=== PATIENT | female | born 1985 | race Caucasian/White ===

== ENCOUNTER 2019-02-12 10:18 | Outpatient (CLI) | payer OTHER, SELFPAY ==
[2019-02-12 10:53] LABS: Abs Immature Grans 0.01 k/cumm (0.0-0.09); Absolute Basophil Count 0.04 k/cumm (0.0-0.2); Absolute Eosinophil Count 0.06 k/cumm (0.0-0.7); Absolute Lymphocyte Count 1.78 k/cumm (1.2-3.4); Absolute Monocyte Count 0.36 k/cumm (0.11-0.7); Absolute Neutrophil Count 3.11 k/cumm (1.2-6.7); Basophils % 0.7; Eosinophils % 1.1; HGB 12.4 g/dL (12.0-15.5); Immature Grans % 0.2; Lymphocytes % 33.2; Mean Corp. HGB Concentration 32.6 g/dL (32.0-36.0); Mean Corpuscular Hemoglobin 28.6 pg (27.0-33.0); Mean Corpuscular Volume 87.6 fL (80-95); Mean Platelet Volume 9.4 fL (8.0-11.0); Monocytes % 6.7; Neutrophils % 58.1; Platelet Count 317 x1000/uL (130-400); RBC 4.34 m/cumm (4.00-5.20); RBC Distribution Width 13.1 % (11.7-14.6); White Blood Cell Count 5.36 k/cumm (4.4-10.8)
[2019-02-12 11:59] LABS: C-Reactive Protein 1.21 mg/dL (0.0-0.3)
[2019-02-12 12:17] LABS: ESR 21 mm/hr (0-20)
[2019-02-13 10:00] LABS: Cyclic Citrullinated Peptide <2.5 U/mL (<5.0)
[2019-02-13 10:33] LABS: Syphilis Serology (RPR) Negative (Negative)
[2019-02-13 10:34] LABS: Lyme Ab w Rflx to Lyme Confirm Negative (Negative)
[2019-02-13 11:44] LABS: HIV-1/2 Ag & Ab Screen Negative (Negative)
[2019-02-13 15:26] LABS: ANA Interpretation Negative (Negative)
== END 2019-02-12 10:38 ==
PROVIDERS: PCP Nurse Practitioner Adult Health; Visit Provider Nurse Practitioner Adult Health
DX: M25.50 Pain in unspecified joint (principal)
CPT/HCPCS: 36415; 85652; 86200; 87389; 85025; 86038; 86140; 86592; 86618

== ENCOUNTER 2019-05-22 14:53 | Outpatient (REF) | payer OTHER, SELFPAY ==
[2019-05-23 14:55] LABS: Chlamydia Result Negative (Negative); GC Result Negative (Negative)
== END 2019-05-22 15:13 ==
LOC: LBN 14:53
PROVIDERS: PCP Nurse Practitioner Adult Health; Visit Provider Family Medicine
DX: Z11.3 Encounter for screening for infections with a predominantly sexual mode of transmission (principal)
CPT/HCPCS: 87491; 87591

== ENCOUNTER 2019-12-16 08:43 | Outpatient (CLI) | payer OTHER, SELFPAY ==
--- NOTE | 2019-12-16 08:15 | DI.RAD_ITS ---
EXAM: XR KNEE RT 4V AP,LAT,DRAKE,PAT CLINICAL HISTORY: R knee pain. TECHNIQUE: 2D digital imaging was performed. COMPARISON: No exams were available for comparison FINDINGS: BONES: No acute fracture is present. No bony destructive lesion is seen. There is minimal periartic ular spurring JOINTS: The knee is normally aligned. No joint effusion is seen. SOFT TISSUE: Normal. IMPRESSION: Mild degenerative changes. DATA REPOSITORY: RADIATION DOSE DELIVERED:
== END 2019-12-16 09:03 ==
PROVIDERS: PCP Nurse Practitioner Adult Health; Referring Provider Nurse Practitioner Adult Health; Visit Provider Physician Assistant
DX: M17.11 Unilateral primary osteoarthritis, right knee (principal); M25.561 Pain in right knee
CPT/HCPCS: 73564

== ENCOUNTER 2021-11-16 18:57 | Outpatient (REF) | payer OTHER, SELFPAY ==
[2021-11-16 21:05] LABS: AST 26 U/L (15-37); Albumin 4.1 g/dL (3.4-5.0); Alkaline Phosphatase 58 U/L (46-116); Anion Gap 12.6 mmol/L (3-11); BUN 11 mg/dL (7-18); Bilirubin, Total 0.3 mg/dL (0.2-1.0); CO2 26.4 mmol/L (21.0-32.0); CREATININE 0.8 mg/dL (0.55-1.02); Calcium 9.2 mg/dL (8.5-10.1); Calculated LDL 137 mg/dL (<100); Chloride 102 mmol/L (98-107); Cholesterol 238 mg/dL (<200); Estimated GFR 97.87 (mL/min/1.73m2); Glucose 93 mg/dL (74-106); HDL Cholesterol 63 mg/dL (40-60); Potassium 4.2 mmol/L (3.5-5.1); Sodium 141 mmol/L (136-145); TSH (W/Ref FT4) 1.76 uIU/mL (0.36-3.74); Total Protein 7.9 g/dL (6.4-8.2); Triglyceride 194 mg/dL (<150)
[2021-11-16 21:18] LABS: ALT 37 U/L (14-59)
[2021-11-18 12:20] LABS: HCV RNA Qualitative Undetected (Undetected)
== END 2021-11-16 18:58 | disposition home or self-care (01) ==
LOC: NCHCN 18:57
PROVIDERS: PCP Nurse Practitioner Adult Health; Visit Provider Family Medicine
DX: R63.5 Abnormal weight gain (principal); Z87.19 Personal history of other diseases of the digestive system
CPT/HCPCS: 80053; 80061; 87522; 84443

== ENCOUNTER 2022-02-15 16:23 | Outpatient (REF) | payer OTHER, SELFPAY ==
[2022-02-18 17:08] LABS: 2-OH-Ethyl-Flurazepam Negative ng/mL (Cutoff: 10); 7-NH-Clonazepam 1268 ng/mL (Cutoff: 10); 7-NH-Flunitrazepam Negative ng/mL (Cutoff: 10); Alpha OH-Alprazolam Negative ng/mL (Cutoff: 10); Alpha-OH Midazolam Negative ng/mL (Cutoff: 10); Alpha-OH-Triazolam Negative ng/mL (Cutoff: 10); Alprazolam Negative ng/mL (Cutoff: 10); Benzodiazepines Interpretation Positive.; Chlordiazepoxide Negative ng/mL (Cutoff: 10); Clobazam Negative ng/mL (Cutoff: 10); Clonazepam 65 ng/mL (Cutoff: 10); Diazepam Negative ng/mL (Cutoff: 10); Flurazepam Negative ng/mL (Cutoff: 10); Lorazepam Negative ng/mL (Cutoff: 10); Midazolam Negative ng/mL (Cutoff: 10); N-Desmethylclobazam Negative ng/mL (Cutoff: 10); Prazepam Negative ng/mL (Cutoff: 10); Temazepam Negative ng/mL (Cutoff: 10); Triazolam Negative ng/mL (Cutoff: 10); Zolpidem Carboxylic acid 193 ng/mL (Cutoff: 10)
== END 2022-02-15 16:24 | disposition home or self-care (01) ==
LOC: NCHCN 16:23
PROVIDERS: PCP Nurse Practitioner Adult Health; Visit Provider Family Medicine
DX: F41.1 Generalized anxiety disorder (principal)
CPT/HCPCS: 80346

== ENCOUNTER 2022-03-04 11:28 | Emergency (ER) | payer OTHER, SELFPAY ==
--- NOTE | 2022-03-04 11:15 | RT.EKG_ITS ---
APPROVED REPORT Exam: Resting ECG Reason for Exam: Chest pain Patient Location: E HR:114 bpm ECG Measurements Heart Rate 114 AXIS VA 149 P 1 QRSd 84 QRS 33 QT 335 T -17 QTc 461 Conclusion Sinus tachycardia...rate> 99 sinus tachycardia, normal axis, normal intervals, non ishcemic
[2022-03-04 11:33] VITALS: BP 127/83; PULSE 119; RESP 20; TEMP 37.4; O2SAT 97
[2022-03-04] MEDS: Dexamethasone 4 MG/ML VIAL IVP (12:12)
[2022-03-04] MEDS: Ketorolac 15 MG/ML VIAL IVP (12:12)
[2022-03-04] MEDS: Lactated Ringers 1,000 ML 1000 ML IV (12:13)
--- NOTE | 2022-03-04 13:17 | ED.GENADUL_ITS ---
Discharge Plan Disposition Patient Disposition: Home Condition: Stable Discharge Details Clinical Impression: Influenza A Primary Care Provider: Estelle Bennett ED Provider: Chantel Laird Home Meds and New Rx's Prescriptions: New codeine-guaifenesin 10-100 mg/5 mL liquid 5 ml PO Q6H Qty: 120 0RF Continued cyclobenzaprine 5 mg tablet 5 mg PO TID PRN (Reason: muscle spasm) Qty: 15 0RF celecoxib [Celebrex] 200 mg capsule 200 mg PO BID Qty: 90 0RF zolpidem 5 MG tablet 5 mg PO HS PRN PRN Non-Formulary Medication 1 EACH misc 1 tab PO DAILY Label Comments: control ondansetron 4 MG tablet,disintegrating 4 mg PO Q6H PRN PRN (Reason: Nausea / Vomiting) Qty: 30 0RF Discharge Instructions Instructions: H1N1 Influenza (ED) Additional Instructions: Continue supportive care Ibuprofen, Tylenol, albuterol inhaler, 2 puffs every 4-6 hours as needed for cough, wheeze, shortness of breath No return to work until you are fever free for 24 hours Return earlier should he have new or worsening complaints Stand Alone Forms: Work Release Referrals: Estelle Bennett [Primary Care Provider] - Discharge Data Discharge Date/Time-TO BE ENTERED AT DEPARTURE: 03/04/22 13:43 Medical Decision Making This 36-year-old female with flulike symptoms consistent with cough, pleuritic chest pain, fever, chills, myalgias test positive for influenza A, made aware Has requested Tamiflu which is prescribed Ibuprofen and Tylenol, 1 L fluid as patient is tachycardic, likely secondary to fever prior to arrival After fluids, ibuprofen, patient feeling symptomatically improved Supportive care reviewed Return precautions discussed and patient expressed understanding, lungs clear to auscultation, no hypoxia Denies chance of , no abdominal tenderness Recheck in 24 to 48 hours recommended early return precautions reviewed and patient states understanding Medical Records Medical records reviewed: Yes I reviewed the patient's medical records. Lab Data Lab results reviewed: Yes I reviewed the patient's lab results. HPI General Date/Time Provider Initiated Documentation: 03/04/22 11:52 . HPI Narrative: This 36-year-old female presents with cough, chest discomfort, fever, chills starting yesterday. Denies chance of . Denies any additional complaints at this time. Otherwise reportedly healthy Related Data Home Medications Medication Instructions Recorded Confirmed Non-Formulary Medication 1 tab PO DAILY 07/10/17 12/16/19 zolpidem 5 mg tablet 5 mg PO HS PRN PRN 07/10/17 03/04/22 ondansetron 4 mg disintegrating 4 mg PO Q6H PRN PRN Nausea / 18 12/16/19 tablet Vomiting ##30 celecoxib 200 mg capsule (Celebrex) 200 mg PO BID #90 caps 12/16/19 03/04/22 cyclobenzaprine 5 mg tablet 5 mg PO TID PRN muscle spasm #15 12/16/19 12/16/19 tabs codeine 10 mg-guaifenesin 100 mg/5 5 ml PO Q6H #120 mL 03/04/22 mL oral liquid Previous Rx's Medication Instructions Recorded ondansetron 4 mg disintegrating 4 mg PO Q6H PRN PRN Nausea / 07/11/17 tablet Vomiting ##30 celecoxib 200 mg capsule (Celebrex) 200 mg PO BID #90 caps 12/16/19 cyclobenzaprine 5 mg tablet 5 mg PO TID PRN muscle spasm #15 12/16/19 tabs codeine 10 mg-guaifenesin 100 mg/5 5 ml PO Q6H #120 mL 03/04/22 mL oral liquid Allergies Allergy/AdvReac Type Severity Reaction Status Date / Time sulfamethoxazole Allergy Severe Hives Unverified 03/04/22 11:38 [From Septra] trimethoprim [From Septra] Allergy Severe Hives Unverified 03/04/22 11:38 haloperidol [From Haldol] Allergy Intermediate Other (See Unverified 03/04/22 11:38 Comment) General Stated Complaint: [facility]Medical JOHANA: 3 Review of Systems All systems reviewed & are unremarkable except as noted in HPI and below PFSH All Active Problems (Updated 03/04/22 @ 13:22 by MARGIE Lim) Influenza A (Acute) Strain of right quadriceps (Acute) Encounter for screening for other viral diseases (Acute) Right rotator cuff tendonitis (Chronic) Social History Smoking/Tobacco Use Status: Former Tobacco Use Smoking risk assessment performed?: Yes Alcohol Intake: never Drug use: Never Substance use type: does not use Current gender identity: female Do you feel safe at home: Yes Do you feel safe in your relationship?: Yes Exam Const General: cooperative and comfortable Orientation: alert and oriented x3 Resp Effort & Inspection: normal respiratory effort Auscultation: clear to auscultation bilaterally Cardio Rate: tachycardic Rhythm: regular rhythm Heart Sounds: no murmurs GI Inspection: normal to inspection Skin General skin exam: no rashes or lesions noted Neuro General: patient alert and patient oriented x3 Course Vital Signs Vital signs: Vital Signs Temperature 37.4 C 03/04/22 11:33 Pulse 119 H 03/04/22 11:33 Respiratory Rate 20 03/04/22 11:33 Blood Pressure 127/83 03/04/22 11:33 Pulse Oximetry 97 03/04/22 11:33 Temperature 37.4 C 03/04/22 11:33 Temperature Source Oral 03/04/22 11:33 Pulse 119 H 03/04/22 11:33 Respiratory Rate 20 03/04/22 11:33 Respiratory Effort 03/04/22 12:11 Respiratory Depth Normal 03/04/22 12:11 Respiratory Pattern Normal 03/04/22 12:11 Blood Pressure 127/83 03/04/22 11:33 Blood Pressure Position Sitting 03/04/22 11:33 Pulse Oximetry 97 03/04/22 11:33 Oxygen Delivery Method Room Air 03/04/22 11:33 Oxygen Flow Rate 0 03/04/22 11:33 Lab/Test Results Lab/Test Results: 03/04/22 11:44 Tonsil - Not Specified Group A Streptococcus Culture - Pending POC Strep Test-LIONEL(Rapid) Start: 03/04/22 11:42 Freq: Status: Active Protocol: Document 03/04/22 11:51 OSMAR (Rec: 03/04/22 11:51 OSMAR [id number]) Strep test-LIONEL(Rapid)-POC POC-Strep test-LIONEL (Rapid) Negative POC-Strep test-LIONEL (Rapid) Negative
[2022-03-04 13:35] VITALS: BP 99/68; PULSE 103; RESP 18; TEMP 37.2; O2SAT 97
== END 2022-03-04 13:43 | disposition home or self-care (01) ==
PROVIDERS: Emergency Provider Physician Assistant; PCP Nurse Practitioner Adult Health
DX: J10.1 Influenza due to other identified influenza virus with other respiratory manifestations (principal); R00.0 Tachycardia, unspecified
CPT/HCPCS: 36415; 87880; 93005; 94640; 96361; 96374; 96375; 99284; 87081; 93010; J1100; J1885

== ENCOUNTER 2023-02-03 18:34 | Outpatient (REF) | payer OTHER, SELFPAY ==
--- NOTE | 2023-02-03 13:25 | PAPFT_PTH ---
PATIENT: Merlene Rodas LOC: [facility]#:[id number] AGE/SX: 37/F ROOM: RE02/03/[address]: Aliya Doll NP : 1985 BED: DIS: 02/03/2023 SPEC #: [id number] RECD: 02/03/23 18:37 STATUS: ELISSA REQ #: [id number] DAV: 02/03/23 13:[address]: Aliya Doll DEPT: PENDING SALE TO [facility] Cytology RECD BY: Chantel Calvillo ENTERED: 02/03/23 18:37 SP TYPE: PAPFT OTHR DR: Estelle Bennett Tissues: 1 - CX/ENDOCX FOR PAP SMEARS Procedures: PAP THIN PREP/[facility] Screening HPV DNA PROBE Comments: [id number]
--- OUTSIDE RECORDS SUMMARY | 2023-02-03 18:36 | XMS_ITS | Continuity of Care Document ---
Author Name Unknown Organization [facility] Address [address] [place] [address] Encounter [facility] FIN NBR [id number] Date(s): 01/12/22 - 01/12/[address] [id number] Discharge Disposition: Home or Self Care Attending Physician: Clint Koch. MARGIE
--- OUTSIDE RECORDS SUMMARY | 2023-02-03 18:36 | XMS_ITS | Continuity of Care Document ---
Author Name Unknown Organization [facility] Address [address] [place] [address] Encounter [facility] FIN NBR [id number] Date(s): 01/18/22 - 01/18/[address] [id number] Encounter Diagnosis Encounter for drug screening(Discharge Diagnosis) - 01/18/22 Pre-employment examination(Discharge Diagnosis) - 01/18/22 Discharge Disposition: Home or Self Care Attending Physician: Heidi Ruiz APRN Results Laboratory List Name Date .Urinalysis POCT 01/18/22 Most recent to oldest [Reference Range]: 1 Specific Barry, Ur POC 1.020 *NA* (01/18/22 1:27 PM) Specimen Color POC [Yellow] Yellow (01/18/22 1:27 PM) Glucose, Urine POC Negative mg/dL *NA* (01/18/22 1:27 PM) Bilirubin, Urine POC [Negative] Negative (01/18/22 1:27 PM) Ketones, Urine POC [Negative mg/dL] Nega tive mg/dL (01/18/22 1:27 PM) Blood, Urine POC [Negative] Negative (01/18/22 1:27 PM) pH, Urine POC 7.00 *NA* (01/18/22 1:27 PM) Protein, Urine POC [Negative mg/dL] Nega tive mg/dL (01/18/22 1:27 PM) Urobilinogen, Urine POC [0.2] 0.2 (01/18/22 1:27 PM) Nitrite, Urine POC [Negative] Negative (01/18/22 1:27 PM) Leuk Esterase, Urine POC [Negative] Nega tive (01/18/22 1:27 PM)
--- OUTSIDE RECORDS SUMMARY | 2023-02-03 18:36 | XMS_ITS | Continuity of Care Document ---
Author Name Unknown Organization [facility] Address [address] [place] [address] Encounter [facility] FIN NBR [id number] Date(s): 07/29/22 - 07/29/22 [facility] [address] [place] [address] [place] Discharge Disposition: Home or Self Care Attending Physician: KELLY BERGMAN MD Admitting Physician: KELLY BERGMAN MD Referring Physician: KELLY BERGMAN MD Assessment and Plan Diagnostic Tests Pending * Salivary Cortisol,MS LC 07/28/22 Immunizations Given and Recorded Vaccine Date Status Refusal Reason influenza virus vaccine, inactivated 01/19/22 Give n
== END 2023-02-03 18:35 | disposition home or self-care (01) ==
LOC: NCHCN 18:34
PROVIDERS: PCP Nurse Practitioner Adult Health; Visit Provider Nurse Practitioner Family
DX: Z12.4 Encounter for screening for malignant neoplasm of cervix (principal); Z11.51 Encounter for screening for human papillomavirus (HPV)
CPT/HCPCS: 88142; 87480; 87510; 87624; 87660

== ENCOUNTER 2023-04-13 14:48 | Outpatient (REF) | payer OTHER, SELFPAY ==
[2023-04-18 12:52] LABS: 2-OH-Ethyl-Flurazepam Negative ng/mL (Cutoff: 10); 7-NH-Clonazepam 627 ng/mL (Cutoff: 10); 7-NH-Flunitrazepam Negative ng/mL (Cutoff: 10); Alpha OH-Alprazolam Negative ng/mL (Cutoff: 10); Alpha-OH Midazolam Negative ng/mL (Cutoff: 10); Alpha-OH-Triazolam Negative ng/mL (Cutoff: 10); Alprazolam Negative ng/mL (Cutoff: 10); Benzodiazepines Interpretation Positive.; Chlordiazepoxide Negative ng/mL (Cutoff: 10); Clobazam Negative ng/mL (Cutoff: 10); Clonazepam 63 ng/mL (Cutoff: 10); Diazepam Negative ng/mL (Cutoff: 10); Flurazepam Negative ng/mL (Cutoff: 10); Lorazepam Negative ng/mL (Cutoff: 10); Midazolam Negative ng/mL (Cutoff: 10); N-Desmethylclobazam Negative ng/mL (Cutoff: 10); Prazepam Negative ng/mL (Cutoff: 10); Temazepam Negative ng/mL (Cutoff: 10); Triazolam Negative ng/mL (Cutoff: 10); Zolpidem Carboxylic acid 1536 ng/mL (Cutoff: 10)
== END 2023-04-13 14:49 | disposition home or self-care (01) ==
LOC: NCHCN 14:48
PROVIDERS: PCP Nurse Practitioner Adult Health; Visit Provider Family Medicine
DX: F41.1 Generalized anxiety disorder (principal)
CPT/HCPCS: 80346

== ENCOUNTER 2023-08-17 21:44 | Outpatient (REF) | payer SELFPAY ==
[2023-08-25 16:35] LABS: 2-OH-Ethyl-Flurazepam Negative ng/mL (Cutoff: 10); 7-NH-Clonazepam 319 ng/mL (Cutoff: 10); 7-NH-Flunitrazepam Negative ng/mL (Cutoff: 10); Alpha OH-Alprazolam Negative ng/mL (Cutoff: 10); Alpha-OH Midazolam Negative ng/mL (Cutoff: 10); Alpha-OH-Triazolam Negative ng/mL (Cutoff: 10); Alprazolam Negative ng/mL (Cutoff: 10); Benzodiazepines Interpretation Positive.; Chlordiazepoxide Negative ng/mL (Cutoff: 10); Clobazam Negative ng/mL (Cutoff: 10); Clonazepam 26 ng/mL (Cutoff: 10); Diazepam Negative ng/mL (Cutoff: 10); Flurazepam Negative ng/mL (Cutoff: 10); Lorazepam Negative ng/mL (Cutoff: 10); Midazolam Negative ng/mL (Cutoff: 10); N-Desmethylclobazam Negative ng/mL (Cutoff: 10); Prazepam Negative ng/mL (Cutoff: 10); Temazepam Negative ng/mL (Cutoff: 10); Triazolam Negative ng/mL (Cutoff: 10); Zolpidem Carboxylic acid 2987 ng/mL (Cutoff: 10)
== END 2023-08-17 21:45 | disposition home or self-care (01) ==
LOC: NCHCN 21:44
PROVIDERS: PCP Nurse Practitioner Adult Health; Visit Provider Student in an Organized Health Care Education/Training Program
DX: F41.9 Anxiety disorder, unspecified (principal)
CPT/HCPCS: 80346

== ENCOUNTER 2024-08-13 16:13 | Outpatient (REF) | payer SELFPAY ==
[2024-08-21 12:58] LABS: 2-OH-Ethyl-Flurazepam Negative ng/mL (Cutoff: 10); 7-NH-Clonazepam 1061 ng/mL (Cutoff: 10); 7-NH-Flunitrazepam Negative ng/mL (Cutoff: 10); Alpha OH-Alprazolam Negative ng/mL (Cutoff: 10); Alpha-OH Midazolam Negative ng/mL (Cutoff: 10); Alpha-OH-Triazolam Negative ng/mL (Cutoff: 10); Alprazolam Negative ng/mL (Cutoff: 10); Benzodiazepines Interpretation Positive.; Chlordiazepoxide Negative ng/mL (Cutoff: 10); Clobazam Negative ng/mL (Cutoff: 10); Clonazepam 41 ng/mL (Cutoff: 10); Diazepam Negative ng/mL (Cutoff: 10); Flurazepam Negative ng/mL (Cutoff: 10); Lorazepam Negative ng/mL (Cutoff: 10); Midazolam Negative ng/mL (Cutoff: 10); N-Desmethylclobazam Negative ng/mL (Cutoff: 10); Prazepam Negative ng/mL (Cutoff: 10); Temazepam Negative ng/mL (Cutoff: 10); Triazolam Negative ng/mL (Cutoff: 10); Zolpidem Carboxylic acid 2482 ng/mL (Cutoff: 10)
== END 2024-08-13 16:14 | disposition home or self-care (01) ==
LOC: NCHCN 16:13
PROVIDERS: PCP Nurse Practitioner Adult Health; Visit Provider Student in an Organized Health Care Education/Training Program
DX: F41.1 Generalized anxiety disorder (principal)
CPT/HCPCS: 80346

== ENCOUNTER 2025-02-07 21:16 | Outpatient (REF) | payer OTHER, SELFPAY ==
[2025-02-14 05:19] LABS: 2-OH-Ethyl-Flurazepam Negative ng/mL (Cutoff: 10); 7-NH-Clonazepam 907 ng/mL (Cutoff: 10); 7-NH-Flunitrazepam Negative ng/mL (Cutoff: 10); Alpha OH-Alprazolam Negative ng/mL (Cutoff: 10); Alpha-OH Midazolam Negative ng/mL (Cutoff: 10); Benzodiazepines Interpretation Positive.; Prazepam Negative ng/mL (Cutoff: 10); Zolpidem Carboxylic acid 451 ng/mL (Cutoff: 10)
== END 2025-02-07 21:17 | disposition home or self-care (01) ==
LOC: NCHCN 21:16
PROVIDERS: PCP Nurse Practitioner Adult Health; Visit Provider Student in an Organized Health Care Education/Training Program
DX: F41.1 Generalized anxiety disorder (principal)
CPT/HCPCS: 80346